=== PATIENT | female | born 1965 | race Caucasian/White ===

== ENCOUNTER 2020-01-03 13:07 | Inpatient (IN) | payer MEDICAID, OTHER, SELFPAY ==
[~2020-01-03] VITALS: Ht 167.6 cm; Wt 102.5 kg
--- NOTE | 2020-01-03 13:15 | NUR ---
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 no orall trauma. upon arrival pt having a seizure like activity. awarke, but non responsive to verbal commands. vs checked. hooked on monitor. placed on seizure precautions. iv access started on r hand g22. blood draw done. sent to lab. seen by
[2020-01-03] MEDS ORDERED: LORAZEPAM INJ 2 MG/ML VIAL ONE ×2 (14:15→15:18)
[2020-01-03] MEDS ORDERED: LORAZEPAM INJ 2 MG/ML VIAL IV ONE ×2 (14:30→15:30)
[2020-01-03] MEDS ORDERED: LEVETIRACETAM (500MG) 1,000 MG in IV NS 0.9% 100 ML IV SCH (14:30)
[2020-01-03] MEDS ORDERED: IV NS 0.9% 1,000 ML BAG IV ONE (14:30)
[2020-01-03 14:36] LABS: BASOPHILS % (AUTO) 0.2 % (0.0-2.0); EOSINOPHILS % (AUTO) 1.2 % (0.0-6.0); HEMATOCRIT 48 % (33-45); HEMOGLOBIN 15.4 g/dL (11.5-14.8); LYMPHOCYTES # (AUTO) 1.3 /CMM (0.8-4.8); LYMPHOCYTES % (AUTO) 7.9 % (20.0-44.0); MEAN CORPUSCULAR HGB CONC 32 g/dl (31.0-36.0); MEAN CORPUSCULAR VOLUME 89 fL (82-100); MONOCYTES % (AUTO) 6.3 % (2.0-12.0); NEUTROPHILS # (AUTO) 13.6 /CMM (1.8-8.9); NEUTROPHILS % (AUTO) 84.4 % (43.0-81.0); PLATELET COUNT (AUTO) 263 /CMM (150-450); RED BLOOD CELL COUNT(AUTO) 5.34 MIL/uL (4.0-5.2); WHITE BLOOD COUNT (AUTO) 16.1 K/uL (4.3-11.0)
[2020-01-03 15:03] LABS: CALCIUM, SERUM 9.3 mg/dL (8.5-10.1); CARBON DIOXIDE 26 mmol/L (21-32); CHLORIDE 109 mmol/L (98-107); GLUCOSE 151 mg/dL (74-106); POTASSIUM 4.3 mmol/L (3.5-5.1); SODIUM SERUM 145 mmol/L (136-145); UREA NITROGEN, BLOOD 26 mg/dL (7-18)
[2020-01-03 15:09] LABS: ALANINE AMINOTRANSFERASE 28 U/L (12-78); ALBUMIN 4.2 g/dL (3.4-5.0); ALCOHOL, BLOOD < 3 mg/dL (0-0); ALKALINE PHOSPHATASE 96 U/L (46-116); ASPARTATE AMINOTRANSFERASE 18 U/L (15-37); BILIRUBIN,DIRECT 0.2 mg/dL (0.0-0.2); BILIRUBIN,TOTAL 0.4 mg/dL (0.2-1.0)
--- NOTE | 2020-01-03 15:15 | NUR ---
MOVE SHEET SUBMITTED AND CALLED FOR TELE BED.
--- NOTE | 2020-01-03 15:30 | NUR ---
pt still have seizure like activity. md notified. ordered to given ativan via iv
--- NOTE | 2020-01-03 15:42 | NUR ---
pt out for ct
--- NOTE | 2020-01-03 15:42 | NUR ---
covid swab collected sent to lab
--- NOTE | 2020-01-03 16:04 | NUR ---
urine collected sen to lab
--- NOTE | 2020-01-03 16:13 | NUR ---
EPIC PAGED FOR ADMISSION
[2020-01-03] MEDS ORDERED: IV NS 0.9% 1,000 ML IV PRN (17:00)
[2020-01-03] MEDS ORDERED: ONDANSETRON HCL/PF 4 MG/2 ML VIAL IVP PRN (17:00)
[2020-01-03] MEDS ORDERED: Z GUARD REMEDY 2 OZ OINT TP PRN (17:00)
[2020-01-03 17:13] LABS: BILIRUBIN,URINE NEGATIVE (NEGATIVE); BLOOD, URINE LARGE Ery/uL (NEGATIVE); COLOR,URINE YELLOW (YELLOW); LEUKOCYTE ESTERASE ,URINE NEGATIVE (NEGATIVE); NITRITE, URINE NEGATIVE (NEGATIVE); PH,URINE 6.5 (5.0-8.0); PROTEIN,URINE NEGATIVE (NEGATIVE); UGLUCOSE >=1000 mg/dL (NEGATIVE); UROBILINOGEN,URINE 0.2 EU/dL (0.2)
--- NOTE | 2020-01-03 17:13 | NUR ---
LAB CALLED PT RESULT OF COVID-19 NEGATIVE (-)
[2020-01-03 17:18] LABS: BACTERIA,URINE None seen /HPF (None Seen); RBC,URINE 21-50 /HPF (0-2); SQUAMOUS EPITHELIAL CELL,UR 0-2 /HPF (None Seen); WBC,URINE 0-2 /HPF (0-3)
--- NOTE | 2020-01-03 17:21 | NUR ---
report given to dania rn, pt viky go to [phone]
--- NOTE | 2020-01-03 17:45 | NUR ---
pt transferred to [facility] in [place]
[2020-01-03 18:00] VITALS: BP 145/119
[2020-01-03] MEDS ORDERED: PIPERACILLIN /TAZOBACTAM 4.5 G in IV D5W 50 ML IV ONE ×2 (18:00→20:00)
--- NOTE | 2020-01-03 18:00 | NUR ---
pt. brought up to floor,with apparent involuntary shakes.skin warm and dry bp elevated.side rails up and padded. hooked up to tele.hep locks both arms intact.pt. appears to hear questions,but does not follow commands.tele report stach 102.o2 on at 3l.rn at bedside. charge machine operator in to see pt.
--- NOTE | 2020-01-03 19:15 | NUR ---
rn endorsed pt. to next yosef lopez.
--- NOTE | 2020-01-03 19:45 | NUR ---
VOCAL TEACHERTELETYPE MECHANIC NOTES PATIENT DROWSY, CONFUSED, AND VERY RESTLESS IN BED. ON 3L NC; NO S/S OF ACUTE RESPIRATORY DISTRESS. TELE MONITOR READING SINUS TACH. IV PRESENT ON LEFT WRIST, SIZE 20 & RIGHT WRIST SIZE 22, INTACT & PATENT, HEP LOCKED AT THIS TIME. ABRASIONS PRESENT ON LEFT LEG AND PERINEAL REDNESS. SAFETY MEASURES IN PLACE AND PATIEN'TS NEEDS MET. BED LOCKED, HOB ELEVATED, SIDE RAILS PADDED FOR SAFETY, ALARM ON. WILL CONTINUE TO MONITOR.
[2020-01-03] MEDS: LORAZEPAM INJ 2 MG/ML VIAL IV PRN (19:57)
[2020-01-04] VITALS: BP 139/92
[2020-01-04] MEDS: PIPERACILLIN /TAZOBACTAM 3.375 G in IV D5W 100 ML IV SCH ×2 (02:12→10:29)
[2020-01-04] MEDS: LORAZEPAM INJ 2 MG/ML VIAL IV PRN (02:12)
[2020-01-04 04:00] VITALS: BP 140/90
--- NOTE | 2020-01-04 07:20 | NUR ---
RN OPENING NOTES RECEIVED PT DROWSY AND RESTLESS. ON 3L O2 VIA NC SATURATING @96%. NO SOB OR ANY S/S OF ACUTE RESPIRATORY DISTRESS AT THIS TIME. TELE MONITOR READING SINUS TACH. IV PRESENT ON L WRIST #20 AND R WRIST #22, BOTH INTACT & PATENT. ABRASIONS PRESENT ON LEFT LEG AND PERINEAL REDNESS. SAFETY MEASURES IN PLACE. CALL LIGHT WITHIN REACH. BED LOCKED AND AT LOWEST POSITION. HOB ELEVATED WITH SIDE RAILS PADDED FOR SAFETY. BED ALARM ON. WILL CONTINUE TO MONITOR.
--- NOTE | 2020-01-04 07:46 | NUR ---
MANAGER DIESEL CLOSING NOTES PATIENT SLEEPING. REMAINS DROWSY AND CONFUSED. ON 3L NC, NO S/S OF SOB, BREATHING IS EVEN AND UNLABORED. NO S/S OF PAIN NOTED. TELE MONITOR READING SINUS TACH. IV LINES REMAIN INTACT & PATENT. SOFT BILATERAL WRIST RESTRAINTS PRESENT FOR PATIENT SAFETY, SKIN CIRCULATION WNL. SAFETY MEASURES IN PLACE AND PATIENT'S NEEDS MET. BED LOCKED, HOB ELEVATED, SIDE RAILS PADDED, ALARM ON. ENDORSED TO DAY SHIFT RN PLAN OF CARE.
[2020-01-04] MEDS ORDERED: SPIR25TA6 PO (07:58)
[2020-01-04] MEDS ORDERED: GLIM4TAB37 PO (07:58)
[2020-01-04] MEDS ORDERED: AMLO-213 PO (07:58)
[2020-01-04] MEDS ORDERED: CLON0.3T PO (07:58)
[2020-01-04] MEDS ORDERED: LEVE500T9 PO (07:58)
[2020-01-04] MEDS ORDERED: EMPA10TA PO (07:58)
[2020-01-04] MEDS ORDERED: OMEP40CA13 PO (07:58)
[2020-01-04] MEDS ORDERED: CARV25TA2 PO (07:58)
[2020-01-04] MEDS ORDERED: SITA100T PO (07:58)
[2020-01-04] MEDS ORDERED: LOSA100T31 PO (07:58)
[2020-01-04] MEDS ORDERED: ATOR40TA PO (07:58)
[2020-01-04] MEDS ORDERED: GABA600T12 PO (07:58)
[2020-01-04 08:52] LABS: BASOPHILS % (AUTO) 0.5 % (0.0-2.0); HEMATOCRIT 51 % (33-45); HEMOGLOBIN 16.7 g/dL (11.5-14.8); LYMPHOCYTES % (AUTO) 6.7 % (20.0-44.0); MEAN CORPUSCULAR HGB CONC 33 g/dl (31.0-36.0); MEAN CORPUSCULAR VOLUME 89 fL (82-100); MONOCYTES % (AUTO) 10.4 % (2.0-12.0); NEUTROPHILS % (AUTO) 82.4 % (43.0-81.0); PLATELET COUNT (AUTO) 295 /CMM (150-450); RED BLOOD CELL COUNT(AUTO) 5.78 MIL/uL (4.0-5.2); WHITE BLOOD COUNT (AUTO) 20.6 K/uL (4.3-11.0)
[2020-01-04 08:53] LABS: BASOPHILS # (AUTO) 0.1 /CMM (0.0-0.2); LYMPHOCYTES # (AUTO) 1.4 /CMM (0.8-4.8); MONOCYTES # (AUTO) 2.1 /CMM (0.1-1.30)
[2020-01-04] MEDS ORDERED: LEVETIRACETAM (250 MG) 250 MG TABLET PO SCH (09:00)
[2020-01-04] MEDS ORDERED: ENOXAPARIN SODIUM 40 MG/0.4 ML DISP.SYRIN SQ SCH (09:30)
[2020-01-04 09:51] LABS: ALBUMIN 3.7 g/dL (3.4-5.0); BILIRUBIN,TOTAL 0.7 mg/dL (0.2-1.0); CALCIUM, SERUM 9.3 mg/dL (8.5-10.1); CREATININE 2.4 mg/dL (0.6-1.3); MAGNESIUM 2.7 mg/dL (1.8-2.4); PHOSPHORUS 3.9 mg/dL (2.5-4.9); POTASSIUM 4.4 mmol/L (3.5-5.1); TOTAL PROTEIN, SERUM 7.6 g/dL (6.4-8.2)
[2020-01-04] MEDS ORDERED: VANCOMYCIN 1.5 GM in IV D5W 500ml IV ONE (10:00)
[2020-01-04] MEDS: LEVETIRACETAM (500MG) 1,000 MG in IV NS 0.9% 100 ML IV SCH ×2 (10:28→22:51)
[2020-01-04] MEDS ORDERED: DEXTROSE 50%-WATER 50 ML DISP.SYRIN IV PRN (11:30)
[2020-01-04] MEDS ORDERED: *INSULIN REGULAR(HUMULIN R)HUM 100 UNIT/ML VIAL SQ PRN (11:30)
[2020-01-04 11:55] LABS: ABG BASE EXCESS -4.4 mmol/L; ABG OXYGEN SATURATION 94.5 % (92.0-98.5); ABG PCO2 30.2 mmHg (35.0-45.0); ABG PH 7.411 (7.350-7.450); ABG PO2 69.3 mmHg (75.0-100.0); AaDO2 152.4 mmHg; COHb 1.4 % (0.5-1.5); MetHb 0.5 % (0.0-1.5); O2Hb 92.7 % (94.0-97.0); SITE, ABG Left Radial; VENT MODE, BG 36% NC
--- NOTE | 2020-01-04 12:00 | NUR ---
RN NOTES PT IS LETHARGIC. UNABLE TO SWALLOW. NOTHING IS GIVEN PER MOUTH AT THIS TIME. FOOD TRAY HELD AND NOT GIVEN. ASPIRATION PRECAUTION.
--- NOTE | 2020-01-04 12:29 | NUR ---
BOAT HOIST OPERATOR HELPER NOTE RECEIVED REPORT FROM BRIANDA. PATIENT IN BED RESTING COMFORTABLY. PATIENT IN NO ACUTE DISTRESS. NO SOB NOTED. PATIENT BREATHING IS EVEN AND UNLABORED. PATIENT SAFETY PRECAUTIONS IN PLACE. SEIZURE PRECAUTIONS IN PLACE. HOB IS ELEVATED. PATIENT BED ALARM IS ON. PATIENT BED IS LOCKED AND IN LOWEST POSITION. CALL LIGHT WITHIN REACH. WILL CONTINUE TO MONITOR.
[2020-01-04] MEDS: BLOOD SUGAR DIAGNOSTIC 1 EACH STRIP VI SCH ×3 (12:45→23:59)
[2020-01-04] MEDS: INSULIN REGULAR, HUMAN 100 UNIT/ML 3 ML VIAL SQ PRN ×2 (12:50→17:36)
--- NOTE | 2020-01-04 12:51 | NUR ---
CONTROL OPERATOR NOTE PATIENT LETHARGIC UNABLE TO EAT, ASPIRATION RISK. PER BRIANDA PREVIOUS RN PATIENT WAS SEEN BY AND IS AWARE. HELD REGULAR INSULIN 3 UNITS FOR BLOOD SUGAR OF 190 PER SLIDING SCALE PROTOCOL DUE TO PATIENT NPO AT THIS TIME.
[2020-01-04 14:30] VITALS: BP 148/91
[2020-01-04 14:42] LABS: THYROID STIMULATING HORMONE 1.085 uIU/mL (0.358-3.74)
[2020-01-04] MEDS: AZITHROMYCIN 500 MG in IV D5W 250 ML IV SCH (15:08)
--- NOTE | 2020-01-04 15:23 | NUR ---
FILLING ROOM OPERATOR NOTE SPOKE WITH DR. EL AND INFORMED UP PATIENT CONDITION. PER MD ORDER FOR 1000MG IV KEPPRA ONE TIME DOSE NOW. Addendum: 01/04/20 at 1609 by EZRA GODOY RN FILLING ROOM OPERATOR NOTE SPOKE WITH DR. EL AND INFORMED HIM OF PATIENT CONDITION AND DISCUSSED PLAN OF CARE. MD AWARE OF LAST PATIENT KEPPRA DOSE AND NEXT SCHEDULED. PER MD ORDER FOR 1000MG IV KEPPRA ONE TIME DOSE NOW.
[2020-01-04] MEDS ORDERED: LEVETIRACETAM (500MG) 1,000 MG in IV NS 0.9% 100 ML IV ONE (16:00)
[2020-01-04] MEDS: ENOXAPARIN SODIUM 30 MG/0.3 ML DISP.SYRIN SQ SCH ×2 (16:09→17:48)
[2020-01-04 16:30] VITALS: BP 152/88
[2020-01-04] MEDS: CEFTRIAXONE 2 G in IV D5W 100 ML IV SCH (16:32)
--- NOTE | 2020-01-04 16:39 | NUR ---
PORTUGUESE TUTOR NOTE SPOKE WITH DR. EL REGARDING PATIENT ONE TIME DOSE KEPPRA WITH CURRENT BUN AND CREATININE ELEVATED. INFORMED HIM OF RESULTS AND NARINDER FROM PHARMACY RECOMMENDATION TO DISCONTINUE AND CHANGE CURRENT BID KEPRRA DOSE TO [address] SARKAR OF PHARMACY RECOMMENDATIONS. PER DR. EL KEEP 1000 MG KEPPRA BID AND DISCONTINUE ONE TIME DOSE KEPPRA THAT WAS SCHEDULED AT 1600.
--- NOTE | 2020-01-04 16:48 | NUR ---
STUFFED CASING TIER NOTE PER DR. SAUER RECOMMENDING FOR RENAL CONSULT. NOTIFIED DR. STORY AND ORDER PLACE FOR CONSULT.
--- NOTE | 2020-01-04 17:20 | NUR ---
LABEL REMOVER NOTE HELD LOVENOX PM DOSE SCHEDULED DUE TO HEMTURIA IN URINE.
--- NOTE | 2020-01-04 17:36 | NUR ---
BOBBIN DISKER NOTE PATIENT LETHARGIC UNABLE TO EAT, ASPIRATION RISK. HELD REGULAR INSULIN 9 UNITS FOR BLOOD SUGAR OF 258 PER SLIDING SCALE PROTOCOL DUE TO PATIENT NPO AT THIS TIME.
--- NOTE | 2020-01-04 17:42 | NUR ---
DETAIL SUPERVISOR NOTE SPOKE AND INFORMED DR. PORRAS OF HEMATURIA IN URINE. INFORMED HIM OF UA RESULTS. PER DR. PORRAS OKAY TO STILL GIVE LOVENOX SCHEDULED AND MD ORDER FOR CPK LAB.
[2020-01-04] MEDS: IV NS 0.9% 1,000 ML IV PRN (17:49)
--- NOTE | 2020-01-04 19:27 | NUR ---
SALES PROMOTER OPENING NOTES PATIENT LETHARGIC, CONFUSED. ON 3L NC; NO S/S OF SOB; BREATHING IS EVEN AND UNLABORED. NO S/S OF PAIN NOTED. TELE MONITOR READING SINUS TACH. CARRASCO CATH PRESENT WITH HEMATURIA NOTED, PER DAY SHIFT RN MD MADE AWARE. IV ON LEFT HAND PRESENT WITH NS RUNNING AT 75 ML/HR. SOFT BILATERAL WRIST RESTRAINTS PRESENT FOR PATIENT SAFETY. SAFETY MEASURES IN PLACE AND PATIENT'S NEEDS MET. BED LOCKED, SIDE RAILS X3 AND PADDED FOR SEIZURE PRECAUTION, HOB ELEVATED. WILL CONTINUE TO MONITOR.
--- NOTE | 2020-01-04 19:44 | NUR ---
DESIGN CHIEF NOTE PATIENT IN BED RESTING COMFORTABLY. PATIENT IN NO ACUTE DISTRESS. NO SOB NOTED. PATIENT BREATHING IS EVEN AND UNLABORED. PATIENT KEPT CLEAN, DRY AND COMFORTABLE THROUGHOUT SHIFT. PATIENT ON CARDIAC MONITORING READING SINUS TACHYCARDIA HR 112. PATIENT SAFETY PRECAUTIONS IN PLACE. SEIZURE PRECAUTIONS IN PLACE. HOB IS ELEVATED. PATIENT WITH BILATERAL SOFT WRIST RESTRAINTS, GOOD CIRCULATION NOTED. PATIENT BED ALARM IS ON. PATIENT BED IS LOCKED AND IN LOWEST POSITION. CALL LIGHT WITHIN REACH. WILL ENDORSE CARE TO PM SHIFT FOR SHARON.
[2020-01-04 21:28] VITALS: BP_SYST 117; BP_SYST 176; BP_DIAS 119
[2020-01-04] MEDS ORDERED: LABETALOL 20 MG/4 ML VIAL IV ONE (22:00)
[2020-01-04] MEDS ORDERED: VANCOMYCIN 1 GM in IV D5W 250 ML IV SCH (22:00)
[2020-01-04] MEDS ORDERED: LABETALOL HCL IV 100MG VIAL ONE (22:22)
--- NOTE | 2020-01-04 22:57 | NUR ---
EARLY CHILDHOOD LEAD TEACHER NOTE PATIENT'S BP: 180/111, HR: 117. NOTIFIED MAT MAN GURWINDER ROBERTS. RECEIVED ORDERS FOR LABETALOL 5MG IV ONCE. ORDERS RECEIVED AND CARRIED OUT. WILL CONTINUE TO MONITOR.
--- NOTE | 2020-01-04 23:36 | NUR ---
DRY CLEANER PRESSER NOTE PATIENT'S RIGHT ARM SWOLLEN AND WARM TO TOUCH. MULTIPLE BLISTERS PRESENT ON RIGHT ARM. NOTIFIED HARPSICHORD MAKER GURWINDER ROBERTS. RECEIVED ORDERS FOR US VENOUS DOPPLER STUDY OF RIGHT ARM TO R/O DVT. PICTURES TAKEN OF SKIN; PATIENT AWAITING WOUND CONSULT.
[2020-01-05] VITALS: BP 166/119
--- NOTE | 2020-01-05 00:04 | NUR ---
VIRTUAL ASSISTANT FOR ADVERTISERS NOTES PATIENT LETHARGIC AND CONFUSED. BLOOD GLUCOSE 213, HELD 4 UNITS OF INSULIN DUE TO HIGH ASPIRATION RISK. AWAITING SWALLOW EVALUATION.
--- NOTE | 2020-01-05 03:50 | NUR ---
SAW TAILER NOTE PATIENT'S IV ON LEFT HAND, SIZE 20, INFILTRATED. MULTIPLE ATTEMPTS MADE TO START NEW LINE, HOWEVER UNSUCCESSFUL. PATIENT AWAITING MIDLINE INSERTION.
[2020-01-05 04:00] VITALS: BP 155/104
[2020-01-05] MEDS: BLOOD SUGAR DIAGNOSTIC 1 EACH STRIP VI SCH ×4 (06:56→22:43)
[2020-01-05] MEDS: INSULIN REGULAR, HUMAN 100 UNIT/ML 3 ML VIAL SQ PRN ×2 (06:57→17:32)
--- NOTE | 2020-01-05 06:58 | NUR ---
PAINTER AND GRADER CORK NOTES PATIENT CONFUSED. BLOOD GLUCOSE 178, HELD 3 UNITS OF INSULIN DUE TO HIGH ASPIRATION RISK. AWAITING SWALLOW EVALUATION.
[2020-01-05 07:24] LABS: BASOPHILS # (AUTO) 0.1 /CMM (0.0-0.2); BASOPHILS % (AUTO) 0.5 % (0.0-2.0); HEMATOCRIT 51 % (33-45); HEMOGLOBIN 16.4 g/dL (11.5-14.8); LYMPHOCYTES # (AUTO) 1.3 /CMM (0.8-4.8); LYMPHOCYTES % (AUTO) 7.9 % (20.0-44.0); MEAN CORPUSCULAR HGB CONC 32 g/dl (31.0-36.0); MEAN CORPUSCULAR VOLUME 89 fL (82-100); MONOCYTES # (AUTO) 1.8 /CMM (0.1-1.30); MONOCYTES % (AUTO) 10.6 % (2.0-12.0); NEUTROPHILS # (AUTO) 13.5 /CMM (1.8-8.9); PLATELET COUNT (AUTO) 211 /CMM (150-450); WHITE BLOOD COUNT (AUTO) 16.7 K/uL (4.3-11.0)
--- NOTE | 2020-01-05 07:47 | NUR ---
TRACTOR OPERATOR BATTERY OPENING NOTES RECEIVED PATIENT IN BED, AWAKE, A/O XO. PATIENT DOES NOT ANSWER TO ANY QUESTIONS JUST LOOKS. PATIENT IN ON OXYGEN THERAPY AT 3LPM VIA NASAL CANULA; BREATHING IS EVEN AND UNLABORED; NO SOB NOTED. TELE MONITOR WITH A CURRENT READING OF ST 109 BPM. NO S/S OF PAIN SUCH FACIAL GRIMACING, MOANING OR GUARDING. IV ACCESS MISSING; PER PLASTIC SHEETING CUTTER NURSE MULTIPLE ATTEMPT HAVE BEEN DONE TO INSERT ONE BUT WITHOUT SUCCESS; AWAITING MIDLINE INSERTION. CARRASCO CATH IN PLACE DRAINING ORANGE URINE; PER PLASTIC SHEETING CUTTER NURSE PATIENT HAD EPISODE OF HEMATURIA POST INSERTION MD AWARE AND IT IS RESOLVING NOW. SAFETY PRECAUTIONS IN PLACE; BED IN LOW POSITION AND LOCKED; RAILS UP AND BEDDED FOR SEIZURE PRECAUTION, CALL LIGHT WITHIN REACH. WILL CONTINUE TO MONITOR PATIENT.
--- NOTE | 2020-01-05 07:59 | NUR ---
STUDIO CAMERA OPERATOR CLOSING NOTES PATIENT AWAKE IN BED WATCHING TV; ACKNOWLEDGES WHEN NAME IS CALLED HOWEVER IS NONVERBAL. ON 3L NC, NO S/S OF SOB OR PAIN NOTED. TELE MONITOR READING SINUS TACH. SLIGHT HEMATURIA NOTED IN CARRASCO CATH, DRAINING WELL. PATIENT AWAITING MIDLINE INSERTION. SAFETY MEASURES IN PLACE AND PATIENT'S NEEDS MET. BED LOCKED, HOB ELEVATED, SIDE RAILS PADDED FOR SEIZURE PRECAUTION. ENDORSED TO DAY SHIFT RN PLAN OF CARE.
[2020-01-05 08:00] LABS: ALBUMIN 3.6 g/dL (3.4-5.0); BILIRUBIN,TOTAL 0.7 mg/dL (0.2-1.0); CALCIUM, SERUM 9.2 mg/dL (8.5-10.1); CREATININE 1.4 mg/dL (0.6-1.3); MAGNESIUM 2.5 mg/dL (1.8-2.4); PHOSPHORUS 4.3 mg/dL (2.5-4.9); POTASSIUM 3.3 mmol/L (3.5-5.1); TOTAL PROTEIN, SERUM 7.6 g/dL (6.4-8.2)
[2020-01-05] MEDS ORDERED: POTASSIUM CHLORIDE 20 MEQ TAB.PRT.SR PO SCH (09:30)
[2020-01-05] MEDS ORDERED: POTASSIUM CL. PREMIX PERIPHER. 50 ML IV SCH (09:30)
--- NOTE | 2020-01-05 10:29 | NUR ---
WOUND CARE CONSULT: PT SEEN FOR BLISTERS TO RT HAND AND FOREARM, MOSTLY INTACT WITH SOME OPEN BLISTERS NOTED, UNKNOWN ETIOLOGY. RECOMMENDATIONS MADE FOR SKIN CARE AND PROTECTION. DISCUSSED WITH NURSING STAFF AND VARNISH MAKER HELPER. RN TO DISCUSS WITH MD ALSO. WILL SEE PRJob ROBERTS IN AGREEMENT WITH PLAN OF CARE. Addendum: 01/05/20 at 1046 by SUNI GERARD WNDNU PT WAS EXAMINED BY DR DERDERIAN. ROBERTS IN AGREEMENT WITH PLAN OF CARE.
[2020-01-05] MEDS: LEVETIRACETAM (500MG) 1,000 MG in IV NS 0.9% 100 ML IV SCH (11:05)
--- NOTE | 2020-01-05 12:43 | NUR ---
INTERNATIONAL COORDINATOR NOTES PATIENT ENDORSED FOR CONTINUITY OF CARE TO MARY MCGUIRE. REPORT GIVEN.
[2020-01-05] MEDS: CEFTRIAXONE 2 G in IV D5W 100 ML IV SCH (12:54)
[2020-01-05] MEDS ORDERED: VANCOMYCIN 1.5 GM in IV D5W 500ml IV SCH (13:00)
--- NOTE | 2020-01-05 13:00 | NUR ---
PHYSICAL THERAPY TECHNICIAN NOTES RECEIVED REPORT FROM MARY CARLOS. PATIENT IN BED AWAKE, A/O X1. NON-VERBAL. ON N/C @3LPM, BREATHING EVEN AND UNLABORED, NO SOB NOTED. TELEMONITORING SHOWS ST WITH HR 100-110, NO S/S OF CARDIAC DISTRESS NOTED. CARRASCO DRAINING URINE. STEFFI PICC LINE G18 JUST INSERTED BY JAYNE HOPE, ALL IV MEDICATIONS RESUMED. SAFETY MEASURES MAINTAINED: BED IN LOWEST POSITION, LOCKED, SIDE RAILS UP X2, CALL LIGHT WITHIN REACH. WILL CONTINUE TO MONITOR PATIENT.
[2020-01-05] MEDS: AZITHROMYCIN 500 MG in IV D5W 250 ML IV SCH (13:28)
[2020-01-05] MEDS: POTASSIUM CL. PREMIX PERIPHER. 50 ML IV SCH ×2 (15:20→16:25)
--- NOTE | 2020-01-05 15:27 | NUR ---
RN NOTES TRIED TO INSERT NG-TUBE BUT UN-ABLE TO INSERT ONE, SAME PT REFUSING TO COOPERATE. SPEECH THERAPIST TERELL CALLED AND REASSESS PT FOR SWALLOWING, PT ABLE TO SWALLOW WITHOUT ASPIRATION, COUGHING OR CHOCKING THIS TIME. ST RECOMMEND TO START PT ON SOFT DIET AND WILL SHE SEE PT AGAIN TOMORROW.
[2020-01-05] MEDS: hydrALAZINE HCL 25 MG TABLET PO PRN (16:28)
[2020-01-05] MEDS: ENOXAPARIN SODIUM 30 MG/0.3 ML DISP.SYRIN SQ SCH (16:29)
--- NOTE | 2020-01-05 16:29 | NUR ---
RN NOTES Pt noted with high BP 170/112 mmHg, PRN Hydralazine 25mg tab p.o. given as ordered. Will continue to monitor.
--- NOTE | 2020-01-05 16:57 | NUR ---
RN NOTES PT SEEN AND EVALUATED BY DR BANSAL WITH ORDER TO CHANGE KEPPRA IV FROM 1000MG Q12HRS TO 1,500MG IV Q12HRS. WILL CONTINUE TO MONITOR.
--- NOTE | 2020-01-05 18:48 | NUR ---
TELE CLOSING RN NOTES PATIENT IN BED AWAKE AND WATCHING TV AT THIS TIME. HOB ELEVATED. A/O X2-3. PT VERBALLY RESPONSIVE NOW AND FOLLOWS COMMANDS. ON N/C @3LPM, BREATHING EVEN AND UNLABORED, NO SOB NOTED DURING SHIFT. TELEMONITORING SHOWS SR-ST WITH HR 100-110, NO C/O OF CARDIAC DISTRESS NOTED. RIGHT WRIST RESTRAINTS IN PLACE WITH GOOD PERIPHERAL PULSE NOTED. STEFFI MIDLINE IN PLACE AND PATENT, IVF OF NS @ 75ML/HR INFUSING WELL. CARRASCO ACTIVELY DRAINING PINKISH TINGE YELLOW URINE URINE VIA GRAVITY, CARRASCO CARE DONE. ALL NEEDS AND CARE PROVIDED WELL. SAFETY MEASURES KEPT IN PLACE: BED IN LOWEST POSITION, LOCKED, SIDE RAILS UP X2, CALL LIGHT WITHIN REACH. WILL ENDORSE TO CHANNEL DEVELOPMENT DIRECTOR NURSE FOR SHARON.
[2020-01-05 20:00] VITALS: BP 166/64
--- NOTE | 2020-01-05 20:37 | NUR ---
TELE/RN OPENING NOTE Patient awake in bed, A/O x2, forgetful and responds to some questions. Patient denies pain, nausea, vomiting, diarrhea. Afebrile. Tele monitor reading sinus rhythm. Breathing even clear, unlabored, no signs of acute distress or SOB. Skin warm, pink, dry, appropriate for ethnicity. Generalized blisters noted on right arm. Redness noted on perineum and abdominal folds. Bruises noted on left leg. STEFFI 18g midline patent and intact running NS @ 75 ml/hr. No redness or infiltration. Patient on soft diet. Bed in low position, wheels locked, side rails up x2, call light within reach, seizure precautions in place.
[2020-01-05] MEDS: LEVETIRACETAM (500MG) 1,500 MG in IV NS 0.9% 100 ML IV SCH (22:04)
[2020-01-06] MEDS: IV NS 0.9% 1,000 ML IV PRN (00:24)
[2020-01-06] MEDS: hydrALAZINE HCL 25 MG TABLET PO PRN ×2 (02:04→13:24)
--- NOTE | 2020-01-06 02:08 | NUR ---
TELE/RN NOTE Patient BP166/64 HR99. Administered PRN hydralazine as ordered. Will continue to monitor.
[2020-01-06] MEDS: BLOOD SUGAR DIAGNOSTIC 1 EACH STRIP VI SCH ×4 (07:00→22:15)
--- NOTE | 2020-01-06 07:21 | NUR ---
TELE/RN CLOSING NOTE Patient awake in bed, A/O x2, forgetful and responds to some questions. Tele monitor reading sinus rhythm. Breathing even clear, unlabored, no signs of acute distress or SOB. Skin warm, pink, dry, appropriate for ethnicity. Generalized blisters noted on right arm. Redness noted on perineum and abdominal folds. Bruises noted on left leg. STEFFI 18g midline patent and intact running NS @ 75 ml/hr. No redness or infiltration. All needs mets. All scheduled medications administered. Linen changed. Wound dressing changed. Bed in low position, wheels locked, side rails up x2, call light within reach, seizure precautions in place.
--- NOTE | 2020-01-06 07:31 | NUR ---
TELE OPENING RN NOTES PATIENT RECEIVED IN BED AWAKE IN NO ACUTE SIGNS OF DISTRESS. HOB ELEVATED. A/O X2-3. VERBALLY RESPONSIVE, DENIES PAIN OR ANY DISCOMFORTS AT THIS TIME. ON N/C @3LPM, BREATHING EVEN AND UNLABORED. TELEMONITORING SHOWS SR WITH HR ON THE 80'S, NO C/O OF CARDIAC DISTRESS VOICED. RIGHT WRIST RESTRAINTS IN PLACE WITH GOOD PERIPHERAL PULSE NOTED. STEFFI MIDLINE IN PLACE AND PATENT, IVF OF NS @ 75ML/HR INFUSING WELL. CARRASCO ACTIVELY DRAINING CLEAR YELLOW URINE VIA GRAVITY. SAFETY MEASURES IN PLACE: BED IN LOWEST POSITION, LOCKED, SIDE RAILS UP X2, CALL LIGHT WITHIN REACH. WILL CONTINUE TO MONITOR PT.
[2020-01-06 08:00] VITALS: BP 152/97
[2020-01-06 09:45] LABS: CALCIUM, SERUM 8.7 mg/dL (8.5-10.1); POTASSIUM 3.3 mmol/L (3.5-5.1)
[2020-01-06 09:46] LABS: CREATININE 0.8 mg/dL (0.6-1.3)
[2020-01-06 10:20] LABS: BASOPHILS # (AUTO) 0.1 /CMM (0.0-0.2); BASOPHILS % (AUTO) 0.8 % (0.0-2.0); EOSINOPHILS % (AUTO) 3.4 % (0.0-6.0); HEMATOCRIT 44 % (33-45); HEMOGLOBIN 13.9 g/dL (11.5-14.8); LYMPHOCYTES # (AUTO) 1.9 /CMM (0.8-4.8); LYMPHOCYTES % (AUTO) 14.4 % (20.0-44.0); MEAN CORPUSCULAR HGB CONC 32 g/dl (31.0-36.0); MEAN CORPUSCULAR VOLUME 89 fL (82-100); MONOCYTES # (AUTO) 1.4 /CMM (0.1-1.30); MONOCYTES % (AUTO) 10.9 % (2.0-12.0); NEUTROPHILS # (AUTO) 9.3 /CMM (1.8-8.9); NEUTROPHILS % (AUTO) 70.5 % (43.0-81.0); PLATELET COUNT (AUTO) 176 /CMM (150-450); RED BLOOD CELL COUNT(AUTO) 4.89 MIL/uL (4.0-5.2); WHITE BLOOD COUNT (AUTO) 13.2 K/uL (4.3-11.0)
[2020-01-06] MEDS: LEVETIRACETAM (500MG) 1,500 MG in IV NS 0.9% 100 ML IV SCH ×2 (10:28→22:15)
[2020-01-06] MEDS: ACETAMINOPHEN 325 MG TABLET PO PRN ×3 (10:48→20:08)
--- NOTE | 2020-01-06 11:05 | NUR ---
RN NOTES PT SEEN BY DR CHILDRESS WITH ORDER TO D/C CARRASCO TODAY AND TO TRY TO PLACE PT ON ROOM AIR IF SHE CAN TOLERATE.
--- NOTE | 2020-01-06 11:10 | NUR ---
RN NOTES PT PLACED ON ROOM AIR, TOLERATING WELL WITH NO S/S OF ACUTE RESPIRATORY DISTRESS NOTED WITH SP02 OF 95% NOTED. WILL CONTINUE TO MONITOR.
[2020-01-06] MEDS: CEFTRIAXONE 2 G in IV D5W 100 ML IV SCH (11:47)
[2020-01-06 12:00] VITALS: BP 180/97
[2020-01-06] MEDS: INSULIN REGULAR, HUMAN 100 UNIT/ML 3 ML VIAL SQ PRN ×2 (12:10→17:15)
--- NOTE | 2020-01-06 12:30 | NUR ---
RN NOTES TELE-MONITORING DISCONTINUED, PT WITH NO C/O CHEST PAIN OR ANY CARDIAC DISTRESS VOICED. WILL CONTINUE TO MONITOR.
[2020-01-06] MEDS: AZITHROMYCIN 500 MG in IV D5W 250 ML IV SCH (12:42)
[2020-01-06] MEDS ORDERED: VANCOMYCIN HCL 0.75 GM in IV D5W 250 ML IV SCH (13:00)
[2020-01-06 13:06] LABS: CALCIUM, SERUM 9.1 mg/dL (8.5-10.1); CREATININE 0.8 mg/dL (0.6-1.3); POTASSIUM 3.4 mmol/L (3.5-5.1)
[2020-01-06] MEDS: LOSARTAN POTASSIUM 50 MG TABLET PO SCH (14:47)
[2020-01-06] MEDS: CARVEDILOL 12.5 MG TABLET PO SCH ×2 (14:48→17:37)
[2020-01-06 16:00] VITALS: BP 160/97
[2020-01-06] MEDS: ENOXAPARIN SODIUM 30 MG/0.3 ML DISP.SYRIN SQ SCH (16:31)
--- NOTE | 2020-01-06 18:20 | NUR ---
RN NOTES PT NOTED WITH LOW POTASSIUM 3.4 TODAY, ADMINISTERED K-DUR 20MEQ TAB ORDERED AND TOLERATED. WILL CONTINUE TO MONITOR.
--- NOTE | 2020-01-06 18:22 | NUR ---
RN NOTES PT'S CARRASCO DC'D EARLIER PER MD ORDER, NO HEMATURIA NOTED. PT VOIDED X1 UP TO THIS TIME. WILL CONTINUE TO MONITOR.
[2020-01-06] MEDS ORDERED: POTASSIUM CHLORIDE 20 MEQ TAB.PRT.SR PO SCH (18:30)
--- NOTE | 2020-01-06 18:47 | NUR ---
MS RN CLOSING RN NOTES PATIENT IN BED AWAKE, A/O X3. ABLE TO MAKE NEEDS KNOWN. ON ROOM AIR, BREATHING EVEN AND UNLABORED, NO SOB NOTED DURING SHIFT. STEFFI MIDLINE IN PLACE AND PATENT. PT VOIDING WELL S/P CARRASCO REMOVAL TODAY. ALL NEEDS AND CARE PROVIDED WELL. SEIZURE AND SAFETY MEASURES KEPT IN PLACE: BED IN LOWEST POSITION, LOCKED, SIDE RAILS UP X2 AND PADDED, CALL LIGHT WITHIN REACH. WILL ENDORSE TO AIR CONDITIONING EQUIPMENT MECHANIC NURSE FOR SHARON.
--- NOTE | 2020-01-06 19:59 | NUR ---
MS RN NOTES RECEIVED PATIENT IN BED AWAKE, ALERT ORIENTED X3. ABLE TO MAKE NEEDS KNOWN. ON ROOM AIR, BREATHING EVEN AND UNLABORED, NO SOB NOTED DURING SHIFT. STEFFI MIDLINE IN PLACE AND PATENT.ALL NEEDS AND CARE PROVIDED WELL. AMBULATE WITH ASSIST. SEIZURE AND SAFETY MEASURES KEPT IN PLACE: BED IN LOWEST POSITION, LOCKED, SIDE RAILS UP X2 AND PADDED, CALL LIGHT WITHIN REACH.ALL NEEDS ANTICIPATED. WILL CONTINUE TO MONITOR ACCORDINGLY.
[2020-01-06 20:00] VITALS: BP 141/88
[2020-01-06 20:56] VITALS: BP 141/88
[2020-01-07] MEDS: IBUPROFEN 600 MG TABLET PO PRN ×2 (02:38→08:41)
--- NOTE | 2020-01-07 02:38 | NUR ---
RN NOTES MOTRIN 600 MG GIVEN FOR COMPLAINTS OF BACK PAIN AND PAIN ON HER RIGHT ARM. SAFETY PRECAUTIONS IN PLACE, ASPIRATION AND SEIZURE PRECAUTIONS EMPHASIZED. WILL CONTINUE TO MONITOR.
--- NOTE | 2020-01-07 06:18 | NUR ---
RN NOTES ALL NEEDS ATTENDED AND MET. ABLE TO REST AND SLEPT AT INTERVALS. PATIENT IN BED AWAKE, A/O X3. ABLE TO MAKE NEEDS KNOWN. ON ROOM AIR, BREATHING EVEN AND UNLABORED, NO SOB NOTED DURING SHIFT. STEFFI MIDLINE IN PLACE AND PATENT. AMBULATE WITH ASSIST. ALL NEEDS ATTENDED. SEIZURE AND SAFETY MEASURES KEPT IN PLACE: BED IN LOWEST POSITION, LOCKED, SIDE RAILS UP X2 AND PADDED, CALL LIGHT WITHIN EASY REACH. WILL ENDORSE TO AM NURSE FOR CONTINUITY OF CARE.
[2020-01-07] MEDS: INSULIN REGULAR, HUMAN 100 UNIT/ML 3 ML VIAL SQ PRN (07:29)
--- NOTE | 2020-01-07 07:30 | NUR ---
RECEIVED PT. AM ALERT AND ORIENTED X3,VERY FORGETFUL.SKIN WARM AND DRY. VS STABLE.
[2020-01-07 08:00] VITALS: BP 169/100
[2020-01-07] MEDS: BLOOD SUGAR DIAGNOSTIC 1 EACH STRIP VI SCH ×2 (08:23→12:17)
[2020-01-07 08:42] VITALS: BP 169/100
[2020-01-07] MEDS: CARVEDILOL 12.5 MG TABLET PO SCH (08:42)
[2020-01-07] MEDS: LOSARTAN POTASSIUM 50 MG TABLET PO SCH (08:42)
[2020-01-07 08:55] LABS: CALCIUM, SERUM 8.8 mg/dL (8.5-10.1); CREATININE 0.7 mg/dL (0.6-1.3); POTASSIUM 3.7 mmol/L (3.5-5.1)
[2020-01-07] MEDS ORDERED: LEVE500T9 PO (09:23)
--- NOTE | 2020-01-07 10:30 | NUR ---
DR. CHILDRESS IN WELL WOUND NURSE,PLANS FOR DISCHARGE TODAY.SON CALLING.
[2020-01-07] MEDS: LEVETIRACETAM (500MG) 1,500 MG in IV NS 0.9% 100 ML IV SCH (10:44)
--- NOTE | 2020-01-07 11:00 | NUR ---
CASE MGMT. CHARLIE TALKING TO PT'S BROTHER-CATHERINE REGARDING HOME CARE.SON LANIE TO SHOE REPAIRMAN PT.SON TO BRING PT. TO PT'S BROTHER'S HOUSE.NIECE TO DO WD CARE TO RT. RN PERFORMED WD. CARE SUPPLIES PUT TOGETHER FOR HOME USE.INSTRUCTIONS TO BE WRITTEN OUT ON DC PAPERS FOR WD.CARE.ALL DC INFO INCLUDING MEDS GIVEN OVER PHONE TO ML DELA CRUZ.
--- NOTE | 2020-01-07 13:00 | NUR ---
pt. refused discharge photos.
--- NOTE | 2020-01-07 14:25 | NUR ---
MIDLINE REMOVED,ALL SIGNATURES ON DC OBTAINED INCLUDING BELONGING SHEET.PT. DRESSED.TAKEN TO LOBBY FOR DC ACCOMPANIED BY WELCOME WAGON HOST/HOSTESS.
== END 2020-01-07 14:25 | disposition home or self-care (01) | DRG 720 ==
LOC: ER 13:17 → TELE 16:13 → MED 01-06 12:25
PROVIDERS: ADMIT Internal Medicine; ATTEND Internal Medicine
PROC: 05H633Z Insertion of Infusion Device into Left Subclavian Vein, Percutaneous Approach (ICD-10-PCS; principal; 2020-01-05)
PROC: B547ZZA Ultrasonography of Left Subclavian Vein, Guidance (ICD-10-PCS; 2020-01-05)
DX: A41.9 Sepsis, unspecified organism (principal); G40.909 Epilepsy, unspecified, not intractable, without status epilepticus; N17.0 Acute kidney failure with tubular necrosis; J69.0 Pneumonitis due to inhalation of food and vomit; E66.9 Obesity, unspecified; E11.9 Type 2 diabetes mellitus without complications; G93.41 Metabolic encephalopathy; D72.829 Elevated white blood cell count, unspecified; I10 Essential (primary) hypertension; D64.9 Anemia, unspecified; D75.1 Secondary polycythemia; E83.41 Hypermagnesemia; E87.2 Acidosis; Z68.36 Body mass index [BMI] 36.0-36.9, adult; R31.9 Hematuria, unspecified; Z79.4 Long term (current) use of insulin
CPT/HCPCS: 36415; 36600; 70450-TC; 71045-TC; 76770-TC; 80048-TC; 80053-TC; 80061-TC; 80076-TC; 80202-TC; 81001; 82550-TC; 82803-TC; 82962-TC; 83605-TC; 83735-TC; 84100-TC; 84443-TC; 84484-TC; 84703-TC; 85025-TC; 85730-TC; 87040-TC; 87081-TC; 92526; 93971-TC; 95819-TC; 97116-TC; 97530-TC; A6253; A6403; G0378; G0480; J0456; J0696; J1650; J1815; J1953; J2060; J2543; J3370; J3480; J3490; J7030; J7042; J7050; J7060